=== PATIENT | female | born 1975 | race Caucasian/White ===

== ENCOUNTER 2017-11-13 06:35 | Day surgery (SDC) | payer BC ==
[~2017-11-13] VITALS: Ht 160 cm; Wt 120.5 kg
--- NOTE | ~2017-11-13 | OP ---
PATIENT NAME: NEDA AGUILERA MEDICAL RECORD: [id number] :75 LOCATION:[facility] ADMISSION DATE: SURGEON: EULALIO ALVAREZ DO DATE OF OPERATION: 11/13/2017 PROCEDURE: EGD with balloon dilation and biopsies. INDICATIONS FOR PROCEDURE: Dysphagia and heartburn. SCOPE: Olympus video gastroscope. MEDICATIONS: Propofol 150 mg IV and Versed 2 mg IV per anesthesia. ESTIMATED BLOOD LOSS: Minimal. COMPLICATIONS: None. FINDINGS: Informed consent was given. The patient was made comfortable with the above medication. After reaching an adequate level of sedation by slow IV push, the patient was placed on her left side. The endoscope was advanced under direct visualization through the mouth to the second portion of the duodenum. The upper and middle thirds of the esophagus appeared normal. At the distal esophagus, there was some stenosis noted. There was no obvious stricture, ulcerations, or severe esophagitis seen, but the distal esophagus was tight making passage of the endoscope somewhat difficult. There was a pseudodiverticulum noted just proximal to this stenosis which spanned approximately 4 cm to the GE junction. Using light pressure, the endoscope did eventually pass through the distal esophagus. An 18-20 mm CRE dilating balloon was passed through the working channel of the endoscope and this site was dilated to 20 mm maximum diameter. After the dilation, there was a mucosal tear in the esophagus visualized. There was some slight bleeding, which stopped on its own. The dilation was felt to be successful. The middle esophagus was biopsied to rule out the presence of eosinophils. The endoscope was advanced into the stomach and retroflexed to view the cardia, which appeared normal. The fundus and body of the stomach appeared normal as did the antrum and prepyloric region. Random biopsies were taken to submit for histology and to rule out H. pylori. The endoscope was advanced beyond the pylorus into the duodenum. The entire examined duodenum appeared normal. Random biopsies were taken to submit for histopathology. The endoscope was withdrawn from the patient. The patient tolerated the procedure well and there were no complications. IMPRESSION: 1. Distal esophageal stenosis, spanning approximately 4 cm down to the GE junction. This was dilated to 20 mm maximum diameter successfully. 2. Otherwise normal esophagus, stomach, and small bowel. Biopsies were taken from the mid esophagus, stomach, and duodenum. PLAN AND RECOMMENDATIONS: 1. Discharge home when recovery parameters are met. 2. Soft diet times 48 hours, then regular. 3. Continue current medications. 4. Start pantoprazole 40 mg daily times 8 weeks, then change to 20 mg once daily indefinitely. 5. Consider barium esophagram and/or esophageal manometry regarding recurrent esophageal stenosis. Characteristics of the stenosis are concerning for the OPERATIVE REPORT [id number] NEDA AGUILERA beginning of achalasia. If this is the case, this may require definitive therapy in the future. TRANSINT:[id number] Voice Confirmation ID: [id number] DOCUMENT ID: [id number] EULALIO ALVAREZ DO at 1255 CC: [id number] DICTATION DATE: 11/13/17 0859 GUILLOTINE TRIMMER: 11/13/17 0934 [facility] 11/13/17 [facility] [address] [place] [address]
[2017-11-13 07:03] LABS: HEMATOCRIT 39.5 % (36.0-48.0); HEMOGLOBIN 12.6 g/dL (12-16); MCHC 31.9 g/dL (31.0-37.0); MEAN PLATELET VOLUME 9.6 fL (7.4-10.4); RBC 4.34 10x6/uL (4.00-5.40); RDW 13.4 % (11.5-14.5); WBC 4.5 10x3/uL (4.8-10.8)
[2017-11-13] MEDS ORDERED: EFFEXOR XR37.5 MG PO (08:15)
[2017-11-13] MEDS ORDERED: TOPROL XL50 MG PO (08:15)
[2017-11-13] MEDS ORDERED: AMBIEN10 MG (08:16)
[2017-11-13] MEDS ORDERED: IMITREX100 MG (08:16)
[2017-11-13] MEDS ORDERED: LEVOTHYROXINE200 MCG PO (08:16)
[2017-11-13] MEDS ORDERED: ESTRACE 0.5 MG0.5 MG PO (08:17)
[2017-11-13 08:26] VITALS: BP 116/66; Ht 160 cm; Wt 120.5 kg
== END 2017-11-13 10:07 | disposition home or self-care (01) ==
LOC: D.OPS 06:35
PROVIDERS: Anesthesiology
DX: K22.2 Esophageal obstruction (principal); K29.50 Unspecified chronic gastritis without bleeding; K20.9 Esophagitis, unspecified; Z01.812 Encounter for preprocedural laboratory examination

== ENCOUNTER → 2019-02-12 08:18 | Outpatient (CLI) | payer OTHER ==
[2017-11-13 08:26] VITALS: BMI 47.0
[~2019-02-12 08:18] MED LIST: AMBIEN10 MG; EFFEXOR XR37.5 MG PO; ESTRACE 0.5 MG0.5 MG PO; IMITREX100 MG; LEVOTHYROXINE200 MCG PO; TOPROL XL50 MG PO
== END | disposition home or self-care (01) ==
LOC: D.RAD 08:18
PROVIDERS: ATTEND Internal Medicine Gastroenterology
DX: R13.10 Dysphagia, unspecified (principal); R12 Heartburn

== ENCOUNTER 2019-02-13 11:07 | Day surgery (SDC) | payer OTHER ==
[~2019-02-13] VITALS: Ht 160 cm; Wt 113.6 kg
[2019-02-13 11:59] LABS: BASOPHILS 0 % (0-2); EOSINOPHILS 2.8 % (0-7); HEMATOCRIT 43.3 % (36.0-48.0); HEMOGLOBIN 14.3 g/dL (12-16); IMMATURE GRANULOCYTES 0.2 % (0-5); LYMPHOCYTES 31.7 % (15-50); MCH 30.2 pg (26.0-34.0); MCV 91.5 fL (80.0-100.0); MEAN PLATELET VOLUME 9.4 fL (7.4-10.4); MONOCYTES 9.3 % (2-11); RBC 4.73 10x6/uL (4.00-5.40); RDW 14.2 % (11.5-14.5)
[2019-02-13 12:01] LABS: PLATELET COUNT 225 10x3/uL (130-400)
[2019-02-13 12:15] LABS: ANION GAP 8.6 mmol/L (8-16); CALCIUM 9.1 mg/dL (8.5-10.1); CREATININE - SERUM 0.9 mg/dL (0.6-1.3); POTASSIUM - SERUM 4.6 mmol/L (3.5-5.1)
[2019-02-13 13:31] VITALS: Ht 160 cm; Wt 113.6 kg
--- NOTE | 2019-02-13 15:22 | NUR ---
1525 IV REMOVED AND PRESSURE HELD DRESSING APPLIED
--- NOTE | 2019-02-18 11:16 | OP ---
PATIENT NAME: NEDA AGUILERA MEDICAL RECORD: [id number] :75 LOCATION:[facility] ADMISSION DATE: SURGEON: EULALIO ALVAREZ DO DATE OF OPERATION: 02/13/2019 PROCEDURE: EGD with balloon dilation and biopsies. INDICATIONS FOR PROCEDURE: Dysphagia and heartburn. SCOPE: Olympus video gastroscope. MEDICATIONS: Propofol 230 mg IV per anesthesia. ESTIMATED BLOOD LOSS: Minimal. COMPLICATIONS: None immediate. FINDINGS: Informed consent was given. The patient was made comfortable with the above medication. After reaching an adequate level of sedation by slow IV push, the patient was placed on her left side. The endoscope was advanced under direct visualization through the mouth to the second portion of the duodenum with ease. The upper esophagus appeared normal. In the mid esophagus at approximately 27 cm, there was a diverticulum visualized. The endoscope easily passed this site into the distal esophagus and GE junction where there was felt to be some esophageal stenosis. There was evidence of LA class A reflux-induced esophagitis as well. For the stenosis, an 18-20 mm CRE dilating balloon was placed through the working channel of the endoscope across the site and the stenosis was dilated to 20 mm maximum diameter successfully. The endoscope was advanced beyond the GE junction into the stomach and retroflexed view of the cardia and fundus, which appeared normal. The body of the stomach also appeared normal. In the antrum and prepyloric regions, there was some mild erythema and granularity consistent with possible gastritis. Random cold forceps biopsies were taken to submit for histopathology and to rule out the presence of H. pylori. The endoscope was advanced beyond the pylorus into the duodenum, which appeared normal to the second portion. The endoscope was then withdrawn from the patient. The patient tolerated the procedure well and there were no complications. IMPRESSION: 1. Esophageal diverticulum located at approximately 27 cm. 2. Esophageal stenosis, dilated to 20 mm maximum diameter. 3. Possible gastritis of the antrum and prepyloric region. PLAN AND RECOMMENDATIONS: 1. Discharge home when recovery parameters are met. 2. Follow up biopsy specimen results. 3. GERD diet and reflux precautions. 4. Continue current medications. 5. Follow up in the GI clinic in approximately 4 weeks to discuss symptoms. If there is continued dysphagia and no evidence of eosinophils on mid esophagus biopsies, I would recommend a manometry for further evaluation of the distal esophagus and the possibility that the patient could have achalasia. If eosinophils are present on mid esophageal biopsies, this will be treated OPERATIVE REPORT [id number] NEDA AGUILERA accordingly. TRANSINT:[id number] Voice Confirmation ID: [id number] DOCUMENT ID: [id number] EULALIO ALVAREZ DO at 1116 CC: [id number] DICTATION DATE: 02/13/19 1432 AWNINGS MECHANIC: 02/13/19 2256 [facility] 02/13/19 [place] [id number] [place] [address]
== END 2019-02-13 15:40 | disposition home or self-care (01) ==
LOC: D.OPS 11:07
PROVIDERS: ATTEND Internal Medicine Gastroenterology
DX: K22.5 Diverticulum of esophagus, acquired (principal); K22.2 Esophageal obstruction; K29.70 Gastritis, unspecified, without bleeding

== ENCOUNTER 2020-01-13 11:20 | Day surgery (SDC) | payer OTHER ==
[~2020-01-13] VITALS: Ht 160 cm; Wt 122.7 kg
[2020-01-13 11:54] LABS: HEMATOCRIT 41.6 % (36.0-48.0); HEMOGLOBIN 13.3 g/dL (12-16); MCV 90.8 fL (80.0-100.0); MEAN PLATELET VOLUME 8.9 fL (7.4-10.4); RBC 4.58 10x6/uL (4.00-5.40); RDW 13.3 % (11.5-14.5)
[2020-01-13] MEDS ORDERED: PROGESTERONE (12:15)
[2020-01-13] MEDS ORDERED: ESTRADIOL (12:15)
[2020-01-13] MEDS ORDERED: ARMOUR THYROID60 M1 PO (12:16)
[2020-01-13 12:19] VITALS: BP 142/76; Ht 160 cm; Wt 122.7 kg
--- NOTE | 2020-01-13 14:20 | NUR ---
1334 IV DC'D. CATHETER TIP INTACT. NO BLEEDING AT SITE. BANDAID APPLIED. DISCHARGE INSTRUCTIONS REVIEWED AND DISCUSSED SOFT DIET FOR NEXT 48 HOURS. SOFT DIET EDUCATIONAL HANDOUT GIVEN TO PATIENT AND IN PACKET.
--- NOTE | 2020-01-14 08:32 | OP ---
PATIENT NAME: NEDA AGUILERA MEDICAL RECORD: [id number] :75 LOCATION:[facility] ADMISSION DATE: SURGEON: EULALIO ALVAREZ DO DATE OF OPERATION: 01/13/2020 PROCEDURE: EGD with biopsies and balloon dilation. INDICATIONS FOR PROCEDURE: Dysphagia, heartburn. SCOPE: Olympus video gastroscope. MEDICATIONS: Propofol 200 mg IV per anesthesia. ESTIMATED BLOOD LOSS: Minimal. COMPLICATIONS: None. FINDINGS: Informed consent was given. The patient was made comfortable with the above medication. After reaching an adequate level of sedation by slow IV push, the patient was placed on her left side. The endoscope was advanced under direct visualization through the mouth to the second portion of the duodenum with ease. The esophagus appeared normal down to approximately 27 cm where a large pulsion type diverticulum was encountered. At this site adjacent to the diverticulum, there is the start of a long segment esophageal stenosis. This has been dilated twice in the past which relieved the patient's symptoms for approximately 1 year. The site was somewhat stenotic, measuring approximately 13 mm in diameter. A CRE dilating balloon was used to dilate the side up to 19 mm successfully. There was some mucosal tearing noted with the dilation. Beyond this site at the GE junction, there was some LA class A reflux-induced esophagitis. Cold forcep biopsies were taken from the squamocolumnar junction. The endoscope was advanced beyond the GE junction into the stomach and retroflexed to view the cardia and fundus, which appeared normal. The body and antrum of the stomach appeared normal as well. Cold forceps, biopsies were taken from the antrum to submit for histopathology and to rule out the presence of H. pylori. The endoscope was advanced beyond the pylorus into the duodenum where there was some granularity, erythema, and possible villous blunting. Cold forceps, biopsies were taken to submit for histopathology. The endoscope was withdrawn from the patient. The patient tolerated the procedure well. There were no complications. IMPRESSION: 1. Esophageal diverticulum located at approximately 27 cm from the incisors. 2. Distal esophageal stenosis, status post dilation to 19 mm diameter successfully. 3. LA class A reflux-induced esophagitis. 4. Duodenitis consisting of erythema, granularity, and possible villous blunting. PLAN AND RECOMMENDATIONS: 1. Discharge home when recovery parameters are met. 2. Follow up biopsy specimen results. 3. GERD diet and reflux precautions. 4. Consider esophageal manometry study if dysphagia persists. 5. Repeat EGD as needed for dysphagia. OPERATIVE REPORT [id number] NEDA AGUILERA TRANSINT:[id number] Voice Confirmation ID: [id number] DOCUMENT ID: [id number] EULALIO ALVAREZ DO at 0832 CC: [id number] DICTATION DATE: 01/13/20 1310 TRAVELING CONSTRUCTION SUPERINTENDENT: 01/13/20 2335 [facility] 01/13/20 [facility] [address] [place] [address]
== END 2020-01-13 13:45 | disposition home or self-care (01) ==
LOC: D.OPS 11:20
PROVIDERS: Anesthesiology; ATTEND Internal Medicine Gastroenterology
DX: R13.10 Dysphagia, unspecified (principal); R12 Heartburn; Q39.6 Congenital diverticulum of esophagus; K22.2 Esophageal obstruction; K21.0 Gastro-esophageal reflux disease with esophagitis; K29.80 Duodenitis without bleeding; K59.09 Other constipation